=== PATIENT | male | born 1935 | race Two or more races ===

== ENCOUNTER 2019-07-10 14:50 | Outpatient (CLI) | payer MEDICARE, OTHER | END 2019-07-10 23:59 | disposition home health service (06) | LOC: WOU 14:50 | PROVIDERS: ATTEND Podiatrist Foot & Ankle Surgery | DX: L89.614 Pressure ulcer of right heel, stage 4 (principal); L89.623 Pressure ulcer of left heel, stage 3; L89.513 Pressure ulcer of right ankle, stage 3; G30.9 Alzheimer's disease, unspecified; F02.80 Dementia in other diseases classified elsewhere, unspecified severity, without behavioral disturbance, psychotic disturbance, mood disturbance, and anxiety; Z87.891 Personal history of nicotine dependence; E11.22 Type 2 diabetes mellitus with diabetic chronic kidney disease; N18.3 Chronic kidney disease, stage 3 (moderate); E11.42 Type 2 diabetes mellitus with diabetic polyneuropathy; E11.51 Type 2 diabetes mellitus with diabetic peripheral angiopathy without gangrene; Z74.09 Other reduced mobility | CPT/HCPCS: 87070; 87077; G0463 ==